=== PATIENT | female | born 1990 | race Caucasian/White ===

== ENCOUNTER 2021-09-11 05:00 | Inpatient (IN) | payer MEDICAID ==
[~2021-09-11] VITALS: Ht 165.1 cm; Wt 77.1 kg
[2021-09-11] MEDS ORDERED: LR 1,000 ML IV ONE (05:30)
[2021-09-11] MEDS ORDERED: METOCLOPRAMIDE HCL 10 MG/2 ML VIAL IVP ONE (05:30)
[2021-09-11] MEDS ORDERED: CEFAZOLIN 2 GM IVPB PREMIX 50 ML IV ONE (05:30)
[2021-09-11] MEDS ORDERED: CITRIC ACID/SODIUM CITRATE 30 ML UDC PO ONE (05:30)
[2021-09-11 06:32] LABS: BILIRUBIN,URINE NEGATIVE (NEGATIVE); BLOOD, URINE NEGATIVE (NEGATIVE); CLARITY/URINE CLEAR (CLEAR); COLOR,URINE YELLOW (YELLOW); GLUCOSE,URINE NEGATIVE (NEGATIVE); KETONES,URINE TRACE (NEGATIVE); LEUKOCYTE ESTERASE ,URINE NEGATIVE (NEGATIVE); NITRITE, URINE NEGATIVE (NEGATIVE); PROTEIN URINE NEGATIVE (NEGATIVE); UROBILINOGEN,URINE 0.2 (0.2-1.0)
[2021-09-11 06:35] LABS: RED CELL DISTRIBUTION WIDTH 12.7 % (9.0-15.0)
[2021-09-11 06:42] LABS: BASOPHILS % (AUTO) 0.5 % (0.0-2.0); EOSINOPHILS # (AUTO) 0.1 K/uL (0.0-0.4); EOSINOPHILS % (AUTO) 1.4 % (0.0-4.0); HEMATOCRIT 37.2 % (36-48); HEMOGLOBIN 13.1 g/dL (12.0-16.0); LYMPHOCYTES # (AUTO) 2.1 K/uL (1.0-5.5); LYMPHOCYTES % (AUTO) 23.4 % (20.5-51.5); MEAN CORPUSCULAR HEMOGLOBIN 32 pg (27-31); MEAN CORPUSCULAR HGB CONC 35 % (32-36); MEAN CORPUSCULAR VOLUME 90 fL (79.0-98.0); MONOCYTES # (AUTO) 0.7 K/uL (0.0-1.0); MONOCYTES % (AUTO) 7.8 % (1.7-9.3); NEUTROPHILS % (AUTO) 66.9 % (40.0-70.0); PLATELET COUNT (AUTO) 146 K/uL (130-430); RED BLOOD CELL COUNT(AUTO) 4.12 MIL/uL (4.2-6.2)
[2021-09-11] MEDS ORDERED: OXYCODONE/ACETAMINOPHEN 5-325 TABLET PO PRN (07:45)
[2021-09-11] MEDS ORDERED: OXYTOCIN/0.9 % SODIUM CHLORIDE 1,000 ML IV ONE (07:45)
[2021-09-11] MEDS ORDERED: LR 1,000 ML IV SCH (07:45)
[2021-09-11] MEDS ORDERED: KETOROLAC TROMETHAMINE 30 MG VIAL IVP PRN ×2 (07:45→08:30)
[2021-09-11] MEDS ORDERED: BISACODYL 10 MG/SUPPOSITORY RC PRN (07:45)
[2021-09-11] MEDS ORDERED: ANUSOL 1 EA SUPP.RECT (PREPARATION H) RC PRN (07:45)
[2021-09-11] MEDS ORDERED: LANOLIN 7 GM OINT. TP PRN (07:45)
[2021-09-11] MEDS ORDERED: NALOXONE HCL 0.4 MG/ML AMP (NARCAN) IVP PRN ×2 (08:30)
[2021-09-11] MEDS ORDERED: DIPHENHYDRAMINE INJ 50 MG/ML VIAL IVP PRN (08:30)
[2021-09-11] MEDS ORDERED: HYDROmorphone 1 MG/ML INJ. CARTRIDGE IVP PRN (08:30)
[2021-09-11] MEDS ORDERED: ONDANSETRON HCL 4 MG/2 ML VIAL IVP PRN ×2 (08:30)
[2021-09-11] MEDS ORDERED: LR 1,000 ML IV.SOLN IV ONE (08:50)
[2021-09-11] MEDS ORDERED: BUPIVACAINE /PF 0.75% 10 ML VIAL INJ ONE (08:50)
[2021-09-11] MEDS ORDERED: NS IRRIG SOLN 1000 ML IR ONE (08:50)
[2021-09-11] MEDS ORDERED: MORPHINE SULFATE 10MG/10ML PF AMP ONE (08:50)
[2021-09-11] MEDS ORDERED: ONDANSETRON HCL 4 MG/2 ML VIAL ONE (08:50)
[2021-09-11 10:08] VITALS: BP_SYST 114
[2021-09-11] MEDS ORDERED: KETOROLAC TROMETHAMINE 60 MG/2 ML VIAL IM ONE (12:30)
[2021-09-11] MEDS ORDERED: METOCLOPRAMIDE HCL 10 MG/2 ML VIAL IVP PRN (15:00)
[2021-09-11] MEDS ORDERED: TEMAZEPAM 15 MG CAPSULE PO PRN (21:00)
[2021-09-11] MEDS: DOCUSATE SODIUM 100 MG CAPSULE PO SCH (21:40)
[2021-09-11] MEDS: SENNOSIDES/DOCUSATE SODIUM 1 TAB TABLET(SENOKOT-S) PO SCH (21:41)
[2021-09-12] MEDS: OXYCODONE/ACETAMINOPHEN 5-325 TABLET PO PRN (02:43)
[2021-09-12] MEDS: IBUPROFEN 800 MG TABLET PO PRN ×4 (05:45→23:54)
[2021-09-12 06:22] LABS: RED BLOOD CELL COUNT(AUTO) 3.53 MIL/uL (4.2-6.2)
[2021-09-12 06:28] LABS: BASOPHILS % (AUTO) 0.4 % (0.0-2.0); EOSINOPHILS % (AUTO) 0.2 % (0.0-4.0); HEMATOCRIT 32.3 % (36-48); HEMOGLOBIN 11.2 g/dL (12.0-16.0); LYMPHOCYTES # (AUTO) 2.2 K/uL (1.0-5.5); LYMPHOCYTES % (AUTO) 19.8 % (20.5-51.5); MEAN CORPUSCULAR HEMOGLOBIN 32 pg (27-31); MEAN CORPUSCULAR HGB CONC 35 % (32-36); MEAN CORPUSCULAR VOLUME 92 fL (79.0-98.0); MONOCYTES # (AUTO) 0.9 K/uL (0.0-1.0); NEUTROPHILS # (AUTO) 8.1 K/uL (1.8-7.7); NEUTROPHILS % (AUTO) 71.6 % (40.0-70.0); PLATELET COUNT (AUTO) 142 K/uL (130-430); RED CELL DISTRIBUTION WIDTH 12.9 % (9.0-15.0); WHITE BLOOD COUNT (AUTO) 11.3 K/uL (4.8-10.8)
[2021-09-12] MEDS: DOCUSATE SODIUM 100 MG CAPSULE PO SCH ×2 (09:55→20:17)
[2021-09-12] MEDS: SENNOSIDES/DOCUSATE SODIUM 1 TAB TABLET(SENOKOT-S) PO SCH (20:17)
[2021-09-12] MEDS: SIMETHICONE 80 MG TAB.CHEW PO PRN (20:18)
[2021-09-13] MEDS: SIMETHICONE 80 MG TAB.CHEW PO PRN ×5 (03:01→21:38)
[2021-09-13] MEDS: OXYCODONE/ACETAMINOPHEN 5-325 TABLET PO PRN ×5 (03:01→21:38)
[2021-09-13] MEDS: IBUPROFEN 800 MG TABLET PO PRN ×3 (06:24→17:51)
[2021-09-13] MEDS: DOCUSATE SODIUM 100 MG CAPSULE PO SCH ×2 (09:31→21:37)
[2021-09-13] MEDS: SENNOSIDES/DOCUSATE SODIUM 1 TAB TABLET(SENOKOT-S) PO SCH (21:37)
[2021-09-14] MEDS: OXYCODONE/ACETAMINOPHEN 5-325 TABLET PO PRN ×4 (00:35→10:17)
[2021-09-14] MEDS: IBUPROFEN 800 MG TABLET PO PRN ×2 (00:35→06:35)
[2021-09-14] MEDS: SIMETHICONE 80 MG TAB.CHEW PO PRN (03:15)
[2021-09-14] MEDS: DOCUSATE SODIUM 100 MG CAPSULE PO SCH (10:16)
[2021-09-16 19:07] LABS: FTA-Ab (T PALLIDUM) Non Reactive (Non Reactive)
== END 2021-09-14 11:30 | disposition home or self-care (01) | DRG 540 ==
LOC: SPU 05:00
PROVIDERS: ADMIT Obstetrics & Gynecology; ATTEND Obstetrics & Gynecology
PROC: 10D00Z1 Extraction of Products of Conception, Low, Open Approach (ICD-10-PCS; principal; 2021-09-11 07:42)
DX: O34.211 Maternal care for low transverse scar from previous cesarean delivery (principal); Z20.822 Contact with and (suspected) exposure to COVID-19; Z37.0 Single live birth; Z3A.39 39 weeks gestation of pregnancy
CPT/HCPCS: 36415; 81003; 85025; 86592; 86780; 86886; 86900; 86901; 94640; 94760; J0690; J1885; J2274; J2405; J2590; J2765; J3490; J7120; U0003